=== PATIENT | male | born 1930 | race Caucasian/White ===

== ENCOUNTER 2016-12-22 07:51 | Emergency (ER) | payer MEDICARE ==
--- NOTE | 2016-12-22 08:15 | Emergency Department Record ---
History of Present Illness - General Chief Complaint: Cough Stated Complaint: COUGH Time Seen by Provider: 12/22/16 08:07 Source: Patient, RN notes reviewed Mode of Arrival: Ambulatory - History of Present Illness Initial Comments: cough for 2 days and sore throat and no chilles or fever. No vomiting .no diarrhea. stopped smoking at 32 years and he did have a 30 pack year. 3 pack per day for 10 years. PMH of DM and hypertension Onset/Timin -: Days(s) - Related Data Home Medications Medication Instructions Recorded Confirmed Last Taken Multivitamin [Multi-Vitamin Daily] 1 each PO DAILY 10/28/14 12/22/16 12/22/16 [place]-3 Fatty Acids/Fish Oil [Fish 1 each PO DAILY 10/28/14 12/22/16 12/22/16 Oil 1,000 mg Softgel] Magnesium Oxide [Recinos] 250 mg PO DAILY 03/31/15 12/22/16 12/22/16 Bumetanide [Bumex] 1 mg PO DAILY 12/22/16 12/22/16 12/22/16 Carvedilol [Coreg] 3.125 mg PO BID 12/22/16 12/22/16 12/22/16 Lisinopril 40 mg PO DAILY 12/22/16 12/22/16 12/22/16 Metformin HCl [Glucophage] 500 mg PO DAILY 12/22/16 12/22/16 12/22/16 Previous Rx's Medication Instructions Recorded Allopurinol [Zyloprim] 300 mg PO DAILY #90 tablet 06/23/15 Azithromycin [Zithromax] 250 mg PO DAILY #6 tab 12/22/16 Allergies Allergy/AdvReac Type Severity Reaction Status Date / Time penicillin V potassium Allergy Intermediate RASH Verified 12/22/16 08:03 [From PEN-VEE K] Sulfa (Sulfonamide Allergy Intermediate RASH Verified 12/22/16 08:03 Antibiotics) Travel Screening - Travel/Exposure Within Last 30 Days Have you traveled within the last 30 days?: No Review of Systems Reviewed: No additional complaints except as noted below Constitutional: Reports: As per HPI. Denies: Chills, Fever, Malaise, Night sweats, Weakness, Weight change Eyes: Reports: As per HPI. Denies: Eye discharge, Eye pain, Photophobia, Vision change ENT: Reports: As per HPI, Congestion, Throat pain, Other (hoarse voice). Denies : Dental pain, Ear pain, Epistaxis, Hearing loss Respiratory: Reports: As per HPI, Cough. Denies: Dyspnea, Hemoptysis, Stridor, Wheezes Cardiovascular: Reports: As per HPI. Denies: Arrhythmia, Chest pain, Dyspnea on exertion, Edema, Murmurs, Orthopnea, Palpitations, Paroxysmal nocturnal dyspnea, Rheumatic Fever, Syncope Endocrine: Reports: As per HPI. Denies: Fatigue, Heat or cold intolerance, Polydipsia, Polyuria Gastrointestinal: Reports: As per HPI. Denies: Abdominal pain, Constipation, Diarrhea, Hematemesis, Hematochezia, Melena, Nausea, Vomiting Genitourinary: Reports: As per HPI. Denies: Dysuria, Frequency, Hematuria, Incontinence, Retention, Testicular pain, Testicular mass, Urgency Musculoskeletal: Reports: As per HPI. Denies: Arthralgia, Back pain, Gout, Joint swelling, Myalgia, Neck pain Skin: Reports: As per HPI. Denies: Bruising, Change in color, Change in hair/ nails, Lesions, Pruritus, Rash Neurological: Reports: As per HPI. Denies: Abnormal gait, Confusion, Headache, Numbness, Paresthesias, Seizure, Tingling, Tremors, Vertigo, Weakness Psychiatric: Reports: As per HPI. Denies: Anxiety, Auditory hallucinations, Depression, Homicidal thoughts, Suicidal thoughts, Visual hallucinations Hematological/Lymphatic: Reports: As per HPI. Denies: Anemia, Blood Clots, Easy bleeding, Easy bruising, Swollen glands Past Medical History - SOCIAL HISTORY Smoking Status: Former smoker Alcohol Use: Occassional Drug Use: None - RESPIRATORY Hx Respiratory Disorders: No - CARDIOVASCULAR Hx Cardio Disorders: Yes Hx Hypertension: Yes - NEURO Hx Neuro Disorders: No - GI Hx GI Disorders: No - Hx Genitourinary Disorders: Yes Hx Bladder Problem: Yes Hx Kidney Stones: Yes - ENDOCRINE Hx Endocrine Disorders: Yes Hx Diabetes: Yes - MUSCULOSKELETAL Hx Musculoskeletal Disorders: Yes Hx Arthritis: Yes - PSYCH Hx Psych Problems: No - HEMATOLOGY/ONCOLOGY Hx Hematology/Oncology Disorders: Yes Hx Cancer: Yes (bladder) Family Medical History Any Significant Family History?: No Physical Exam - General General Appearance: Alert, Oriented x3, Cooperative, No acute distress - Head Head exam: Normal inspection - Eye Eye exam: Normal appearance, PERRL Pupils: Normal accommodation - ENT ENT exam: Normal exam, Mucous membranes moist, Normal external ear exam, Normal orophraynx, TM's normal bilaterally Ear exam: Normal external inspection. negative: External canal tenderness Nasal Exam: Normal inspection. negative: Discharge, Sinus tenderness Mouth exam: Normal external inspection, Tongue normal Teeth exam: Normal inspection. negative: Dental caries Throat exam: Normal inspection. negative: Tonsillar erythema, Tonsillar exudate - Neck Neck exam: Normal inspection, Full ROM. negative: Tenderness - Respiratory Respiratory exam: Other (cough with inspiration). negative: Respiratory distress - Cardiovascular Cardiovascular Exam: Regular rate, Normal rhythm, Normal heart sounds - GI/Abdominal GI/Abdominal exam: Soft, Normal bowel sounds. negative: Tenderness - Rectal Rectal exam: Deferred - exam: Deferred - Extremities Extremities exam: Normal inspection, Full ROM, Normal capillary refill. negative: Tenderness - Back Back exam: Reports: Normal inspection, Full ROM. Denies: Muscle spasm, Rash noted, Tenderness - Neurological Neurological exam: Alert, Normal gait, Oriented X3, Reflexes normal - Psychiatric Psychiatric exam: Normal affect, Normal mood - Skin Skin exam: Dry, Intact, Normal color, Warm Medical Decision Making - Data Complexity MDM Data: Labs Ordered and/or Reviewed, X-Ray Ordered and/or Reviewed (no acute changes) Disposition Clinical Impression: Bronchitis Disposition: Home, Self-Care Condition: (1) Good Instructions: Acute Bronchitis (ED) Additional Instructions: follow up with primary in 5-10 days robitussin DM cough syrup two teaspoons every 4 hours Prescriptions: Azithromycin [Zithromax] 250 mg PO DAILY #6 tab Forms: Patient Portal Access Time of Disposition: 09:05
[2016-12-22 08:26] LABS: STREP A SCREEN NEGATIVE (NEGATIVE)
[2016-12-22 08:34] LABS: INFLUENZA A NEGATIVE (NEGATIVE); INFLUENZA B NEGATIVE (NEGATIVE)
[2016-12-22] MEDS ORDERED: AZITHROMYCIN 500 MG TABLET PO ONE (09:03)
== END 2016-12-22 09:24 | disposition home or self-care (01) ==
LOC: ER 07:51
DX: J20.9 Acute bronchitis, unspecified (principal); Z87.891 Personal history of nicotine dependence; I10 Essential (primary) hypertension; E11.9 Type 2 diabetes mellitus without complications; Z79.84 Long term (current) use of oral hypoglycemic drugs
CPT/HCPCS: 71020; 87400; 87880; 99282

== ENCOUNTER 2017-01-04 11:09 | Inpatient (IN) | payer MEDICARE ==
[2017-01-04] MEDS ORDERED: Diph,Pert(Acell),Tet Vac 0.5 ML SYR IM ONE (11:49)
--- NOTE | 2017-01-04 11:54 | Emergency Department Record ---
History of Present Illness - General Chief Complaint: Syncope Stated Complaint: ARRIVED VIA AMBULANCE Time Seen by Provider: 01/04/17 11:41 Source: Patient Mode of Arrival: EMS Limitations: No limitations - History of Present Illness Initial Comments: The patient is here due to possibly passing out while at home. He was outside helping to load wood on a truck when he suddenly became lightheaded and fell backwards into some brush. He did not hit his head and possibly was only out briefly. The next thing he remembers is his family helping him up. The family then called an ambulance and he walked to the ambulance with no problems. He denied any CP, SOB, CHANDLER, or THOMAS prior to falling and has had no problems since. Presently the patient denies any complaints, THOMAS, neck pain, CP, SOB or any recent illnesses. The patient has no cardiac hx and has not started any new medicines. MD Complaint: Collapsed, Narvon faint Onset/Timin -: Hour(s) Prodromal Symptoms: None Injuries Sustained Associated with Event: Other Current Symptoms: None Treatments Prior to Arrival: None - Hominy Coma Scale Eye Response: (4) Open spontaneously Motor Response: (6) Obeys commands Verbal Response: (5) Oriented Hominy Total: 15 - Related Data Home Medications Medication Instructions Recorded Confirmed Last Taken Multivitamin [Multi-Vitamin Daily] 1 each PO DAILY 10/28/14 01/04/17 01/04/17 [place]-3 Fatty Acids/Fish Oil [Fish 1 each PO DAILY 10/28/14 01/04/17 01/04/17 Oil 1,000 mg Softgel] Magnesium Oxide [Recinos] 500 mg PO DAILY 03/31/15 01/04/17 01/04/17 Bumetanide [Bumex] 1 mg PO DAILY 12/22/16 01/04/17 01/04/17 Carvedilol [Coreg] 3.125 mg PO BID 12/22/16 01/04/17 01/04/17 Lisinopril 40 mg PO DAILY 12/22/16 01/04/17 01/04/17 Metformin HCl [Glucophage] 500 mg PO DAILY 12/22/16 01/04/17 01/04/17 Aspirin [Adult Low Dose Aspirin EC] 81 mg PO DAILY 01/04/17 01/04/17 01/04/17 Famotidine [Pepcid] 20 mg PO DAILY 01/04/17 01/04/17 01/04/17 Previous Rx's Medication Instructions Recorded Allopurinol [Zyloprim] 300 mg PO DAILY #90 tablet 06/23/15 Allergies Allergy/AdvReac Type Severity Reaction Status Date / Time penicillin V potassium Allergy Intermediate RASH Verified 01/04/17 11:26 [From PEN-VEE K] Sulfa (Sulfonamide Allergy Intermediate RASH Verified 01/04/17 11:26 Antibiotics) Travel Screening - Travel/Exposure Within Last 30 Days Have you traveled within the last 30 days?: No Review of Systems Constitutional: Denies: Chills, Fever Eyes: Denies: Eye discharge ENT: Denies: Congestion Respiratory: Denies: Cough, Dyspnea Cardiovascular: Denies: Arrhythmia, Chest pain Endocrine: Denies: Fatigue Gastrointestinal: Denies: Abdominal pain Genitourinary: Denies: Dysuria Musculoskeletal: Denies: Arthralgia Skin: Denies: Bruising Past Medical History - SOCIAL HISTORY Smoking Status: Former smoker Alcohol Use: Occassional Drug Use: None - RESPIRATORY Hx Respiratory Disorders: No - CARDIOVASCULAR Hx Cardio Disorders: Yes Hx Hypertension: Yes - NEURO Hx Neuro Disorders: No - GI Hx GI Disorders: No - Hx Genitourinary Disorders: Yes Hx Bladder Problem: Yes Hx Kidney Stones: Yes Hx Renal Disease: Yes (29% kidney function) - ENDOCRINE Hx Endocrine Disorders: Yes Hx Diabetes: Yes - MUSCULOSKELETAL Hx Musculoskeletal Disorders: Yes Hx Arthritis: Yes - PSYCH Hx Psych Problems: No - HEMATOLOGY/ONCOLOGY Hx Hematology/Oncology Disorders: Yes Hx Cancer: Yes (bladder) Comment:: Thalesemia Family Medical History Any Significant Family History?: Yes Hx Diabetes: Mother Physical Exam - General General Appearance: Alert, Oriented x3, Cooperative, No acute distress - Head Head exam: Atraumatic, Normocephalic, Normal inspection Head exam detail: negative: Abrasion, Contusion, Andersen's sign, General tenderness - Eye Eye exam: Normal appearance, PERRL - ENT ENT exam: Normal exam, Mucous membranes moist, Normal external ear exam, Normal orophraynx, TM's normal bilaterally Throat exam: Normal inspection. negative: Tonsillar erythema, Tonsillar exudate - Neck Neck exam: Normal inspection, Full ROM. negative: Lymphadenopathy, Meningismus , Tenderness - Respiratory Respiratory exam: Normal lung sounds bilaterally. negative: Respiratory distress - Cardiovascular Cardiovascular Exam: Regular rate, Normal rhythm, Normal heart sounds - GI/Abdominal GI/Abdominal exam: Soft, Normal bowel sounds. negative: Tenderness - Extremities Extremities exam: negative: Normal inspection (There is a superficial abrasion to the dorsal R hand due to a dog scratching him 2 hours ago.) - Neurological Neurological exam: Alert, Normal gait, Oriented X3. negative: Abnormal gait, Altered, Motor sensory deficit - Psychiatric Psychiatric exam: negative: Agitated, Anxious, Depressed Course Vital Signs 01/04/17 11:12 Temperature 97.4 F L Pulse Rate 55 L Respiratory 20 Rate Blood Pressure 117/98 Pulse Ox 98 - Reevaluation(s) Reevaluation #1: The patient is doing very well at this time. He denies any CP, SOB, CHANDLER or THOMAS. I did explain to him that his lab tests are a little worrisome and that I do recommend hospital admission for monitoring and to recheck his lab tests. The patient does agree. I did then discuss the case with Eboni RODRIGUEZ) and she accepts the admission for Dr. Ray. 01/04/17 13:04 Medical Decision Making - Data Complexity MDM Data: Labs Ordered and/or Reviewed, X-Ray Ordered and/or Reviewed, EKG Ordered and/or Reviewed - Lab Data Result diagrams: 01/04/17 11:30 01/04/17 11:30 - EKG Data -: EKG Interpreted by Me EKG: No Acute Changes, Unchanged From Previous - Radiology Data Radiology results: Report reviewed (CXR: No acute changes.) Disposition Disposition: Admit Clinical Impression: Hyponatremia Syncope Qualifiers: Syncope type: unspecified Qualified Code(s): R55 - Syncope and collapse Disposition: Still a Patient at [facility] Decision to Admit: Admit from ER Decision to Admit Date: 01/04/17 Decision to Admit Time: 13:07 Accepting Physician: Flor Time Discussed w/Accepting Physician: 13:07 Condition: (2) Stable Forms: Patient Portal Access Time of Disposition: 13:07
[2017-01-04 11:56] LABS: HEMATOCRIT 33.3 % (42.0-52.0); HEMOGLOBIN 11.3 gm/dl (14.0-18.0); MEAN CELL VOLUME 64.2 fl (81-97); MEAN CORPUSCULAR HGB CONC 33.9 g/dl (32-36); PLATELET COUNT 161 K/uL (130-400); RED BLOOD COUNT 5.19 M/uL (4.40-5.70); RED CELL DISTRIBUTION WIDTH 17.2 % (11.5-14.5); WHITE BLOOD COUNT W/O DIFF 6.1 K/uL (4.2-12.2)
[2017-01-04 11:59] LABS: MEAN CORPUSCULAR HEMOGLOBIN 21.7 pg (27-33)
[2017-01-04 12:07] LABS: ANION GAP 13.4 (7-16); CARBON DIOXIDE 21.6 mmol/L (22-30); CREATININE 2.3 mg/dL (0.66-1.25)
[2017-01-04 12:12] LABS: INR 0.98; PARTIAL THROMBOPLASTIN TIME 26.6 SECONDS (24.5-39.1); PROTHROMBIN TIME (PATIENT) 11.1 SECONDS (9.5-12.1)
[2017-01-04 12:19] LABS: CKMB 2.5 ug/L (0-6); TROPONIN I 0.037 ng/mL (0.00-0.034)
[2017-01-04 12:21] LABS: ANISOCYTOSIS 1+; HYPOCHROMIA 3+; MICROCYTOSIS 2+; POIKILOCYTOSIS 1+; TARGET CELLS 2+
[2017-01-04 12:22] LABS: TOXIC GRANULATION 1+
[2017-01-04 12:32] LABS: URINE APPEARANCE CLEAR; URINE BILIRUBIN NEGATIVE (NEGATIVE); URINE BLOOD NEGATIVE (NEGATIVE); URINE COLOR YELLOW; URINE GLUCOSE (UA) NEGATIVE (NEGATIVE); URINE KETONE NEGATIVE (NEGATIVE); URINE LEUKOCYTE ESTERASE NEGATIVE (NEGATIVE); URINE NITRITE NEGATIVE (NEGATIVE); URINE PROTEIN NEGATIVE (NEGATIVE); URINE UROBILINOGEN 0.2 E.U./dL (0.20 - 1.00)
[2017-01-04] MEDS ORDERED: 0.9 % SODIUM CHLORIDE 1000ML 1,000 ML IV ONE (12:43)
[2017-01-04] MEDS ORDERED: PNEUM 13-VAL/PF 0.5 ML IM ONE (13:49)
[2017-01-04] MEDS ORDERED: ACETAMINOPHEN 500 MG TABLET PO PRN (13:55)
[2017-01-04] MEDS: 0.9 % SODIUM CHLORIDE 1000ML 1,000 ML IV PRN (14:00)
[2017-01-04] MEDS ORDERED: METFORMIN 500 MG TABLET PO SCH (17:00)
[2017-01-04] MEDS ORDERED: CARVEDILOL 3.125 MG TABLET PO SCH ×2 (17:00→22:00)
[2017-01-05 04:07] LABS: HEMATOCRIT 27.4 % (42.0-52.0); HEMOGLOBIN 9.1 gm/dl (14.0-18.0); MEAN CELL VOLUME 65.2 fl (81-97); MEAN CORPUSCULAR HGB CONC 33.2 g/dl (32-36); PLATELET COUNT 120 K/uL (130-400); RED CELL DISTRIBUTION WIDTH 16.4 % (11.5-14.5)
[2017-01-05 04:09] LABS: MEAN CORPUSCULAR HEMOGLOBIN 21.6 pg (27-33)
[2017-01-05 04:19] LABS: ANION GAP 8.3 (7-16); CARBON DIOXIDE 22.7 mmol/L (22-30)
[2017-01-05 05:28] LABS: HYPOCHROMIA 1+
[2017-01-05] MEDS: 0.9 % SODIUM CHLORIDE 1000ML 1,000 ML IV PRN (09:33)
[2017-01-05] MEDS ORDERED: CARVEDILOL 3.125 MG TABLET PO SCH (10:00)
[2017-01-05] MEDS ORDERED: ALLOPURINOL 100 MG TAB PO SCH (10:00)
[2017-01-05] MEDS ORDERED: FAMOTIDINE 20MG TABLET PO SCH (10:00)
[2017-01-05] MEDS ORDERED: ASPIRIN 81 MG TABEC PO SCH (10:00)
[2017-01-05] MEDS ORDERED: BUMETANIDE 1 MG TABLET PO SCH (10:00)
[2017-01-05] MEDS ORDERED: METFORMIN 500 MG TABLET PO SCH ×2 (10:00→17:00)
--- NOTE | 2017-01-05 10:25 | History & Physical ---
History of Present Illness - Date of Service Date of Service for History & Physical: 01/05/17 - History of Present Illness Admitting Diagnosis: 1. Acute syncopal event with Hyponatremia and Renal Insuffiency. History of Present Illness: 86yo male with CC of syncope. He has a history of chronic renal insufficiency, anemia, hemochromatosis, hypertension, and gout. Patient was brought to ED via EMS after syncopal episode. Patient was out helping load wood into a truck when he got very light-headed and fell backwards in to a hanna. He did not hit his head and but lost consciousness for a few seconds. Family was able to help him back up and then called EMS. He did not have any chest pain, shortness of breath or nausea prior to or after the episode. While in the ED, patient had ekg that showed prolonged KS interval and left bundle branch block. Unfortunately, there were no previous EKG for comparison. 1st set of Troponin was indeterminate at 0.037. Patient was found to be in acute kidney injury with BUN of 57 and Cr of 2.3 (baseline Cr at 1.5). CMP also revealed a sodium of 124, Potassium of 5.4, Cl of 89, Co 21.6. Patient was started on gentle IV rehydration with NS run at 100cc/hr and admitted for FABRIZIO, serial enzymes, and electrolyte correction. 01/04/17- Patient remains asymptomatic. He denies any chest pain, shortness of breath or discomfort. He has never had a syncopal episode before. 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 PCP: visiting physicians Travel Screening - Travel/Exposure Within Last 30 Days Have you traveled within the last 30 days?: No - Travel/Exposure Within Last Year Have you traveled outside the [place] in the last year?: No - Additonal Travel Details Have you been exposed to anyone with a communicable illness?: No - Travel Symptoms Symptom Screening: None Review of Systems Constitutional: Denies: Chills, Fever Eyes: Denies: Eye discharge ENT: Denies: Congestion Respiratory: Denies: Cough, Dyspnea Cardiovascular: Denies: Arrhythmia, Chest pain, Dyspnea on exertion, Edema, Murmurs, Palpitations Endocrine: Denies: Fatigue Gastrointestinal: Denies: Abdominal pain Genitourinary: Denies: Dysuria Musculoskeletal: Denies: Arthralgia Skin: Denies: Bruising Neurological: Reports: Other (syncope) Past Medical History - SOCIAL HISTORY Smoking Status: Former smoker Alcohol Use: Rare Drug Use: None - RESPIRATORY Hx Respiratory Disorders: No - CARDIOVASCULAR Hx Cardio Disorders: Yes Hx Hypertension: Yes - NEURO Hx Neuro Disorders: No Comment:: syncope x2 today - GI Hx GI Disorders: Yes Hx Reflux: Yes - Hx Genitourinary Disorders: Yes Hx Bladder Problem: Yes (bladder cancer) Hx Kidney Stones: Yes Hx Renal Disease: Yes (29% kidney function) - ENDOCRINE Hx Endocrine Disorders: Yes Hx Diabetes: Yes Hx Thyroid Disease: No - MUSCULOSKELETAL Hx Musculoskeletal Disorders: Yes Hx Arthritis: Yes - PSYCH Hx Psych Problems: No - HEMATOLOGY/ONCOLOGY Hx Hematology/Oncology Disorders: Yes Hx Cancer: Yes (bladder) Comment:: Thalesemia Family Medical History Any Significant Family History?: Yes Hx Diabetes: Mother H&P Meds/Allergies - Allergies Allergies: Allergies Allergy/AdvReac Type Severity Reaction Status Date / Time penicillin V potassium Allergy Intermediate RASH Verified 01/04/17 11:26 [From HARSHIL Shea] Sulfa (Sulfonamide Allergy Intermediate RASH Verified 01/04/17 11:26 Antibiotics) - Home Medications Home Medications Medication Instructions Recorded Confirmed Last Taken Multivitamin [Multi-Vitamin Daily] 1 each PO DAILY 10/28/14 01/04/17 01/04/17 [place]-3 Fatty Acids/Fish Oil [Fish 1 each PO DAILY 10/28/14 01/04/17 01/04/17 Oil 1,000 mg Softgel] Magnesium Oxide [Recinos] 500 mg PO DAILY 03/31/15 01/04/17 01/04/17 Bumetanide [Bumex] 1 mg PO DAILY 12/22/16 01/04/17 01/04/17 Carvedilol [Coreg] 3.125 mg PO BID 12/22/16 01/04/17 01/04/17 Lisinopril 40 mg PO DAILY 12/22/16 01/04/17 01/04/17 Metformin HCl [Glucophage] 500 mg PO DAILY 12/22/16 01/04/17 01/04/17 Aspirin [Adult Low Dose Aspirin EC] 81 mg PO DAILY 01/04/17 01/04/17 01/04/17 Famotidine [Pepcid] 20 mg PO DAILY 01/04/17 01/04/17 01/04/17 Previous Rx's Medication Instructions Recorded Allopurinol [Zyloprim] 300 mg PO DAILY #90 tablet 06/23/15 - Active Medications Active Medications: Current Medications Acetaminophen (Tylenol 500mg Tab) 500 mg PO Q6H PRN PRN Reason: PAIN/TEMP Allopurinol (Zyloprim) 300 mg PO DAILY [facility] Aspirin (Ecotrin (Ec)) 81 mg PO DAILY [facility] Bumetanide (Bumex) 1 mg PO DAILY [facility] Carvedilol (Coreg) 3.125 mg PO 1000,1700 [facility] Famotidine (Pepcid) 20 mg PO DAILY [facility] Sodium Chloride () 1,000 mls @ 100 mls/hr IV .Q10H PRN PRN Reason: LARGE VOLUME IV Last Admin: 01/05/17 09:33 Dose: 100 mls/hr Metformin HCl (Glucophage Ir) 500 mg PO 1700 [facility] Physical Exam - Vital Signs Vital Signs: Vital Signs - Last 24 Hrs Temp Pulse Resp BP Pulse Ox 01/05/17 08:17 34 L 20 01/05/17 08:00 97.5 F L 60 20 122/65 98 01/05/17 06:05 97 01/05/17 04:00 97.5 F L 40 L 18 126/55 97 01/04/17 23:13 45 L 18 124/61 97 01/04/17 21:57 50 L 18 123/62 95 01/04/17 19:55 97.9 F 69 20 143/71 95 01/04/17 15:55 97.4 F L 64 18 160/83 98 01/04/17 13:55 98.0 F 64 18 196/79 98 - General General Appearance: Alert, Oriented x3, Cooperative, No acute distress Limitations: No limitations - Head Head exam: Atraumatic, Normocephalic, Normal inspection Head exam detail: negative: Abrasion, Contusion, Andersen's sign, General tenderness - Eye Eye exam: Normal appearance, PERRL - ENT ENT exam: Normal exam, Mucous membranes moist, Normal external ear exam, Normal orophraynx, TM's normal bilaterally Throat exam: Normal inspection. negative: Tonsillar erythema, Tonsillar exudate - Neck Neck exam: Normal inspection, Full ROM. negative: Lymphadenopathy, Meningismus , Tenderness - Respiratory Respiratory exam: Normal lung sounds bilaterally. negative: Respiratory distress - Cardiovascular Cardiovascular Exam: Normal heart sounds, Bradycardia, Irregular rhythm ( regularly irregular) Peripheral Pulses: 2+: Radial (R), Radial (L), Dorsalis Pedis (R), Dorsalis Pedis (L) - GI/Abdominal GI/Abdominal exam: Soft, Normal bowel sounds. negative: Tenderness - Extremities Extremities exam: negative: Normal inspection (There is a superficial abrasion to the dorsal R hand due to a dog scratching him just prior to syncopal episode) - Neurological Neurological exam: Alert, Normal gait, Oriented X3. negative: Abnormal gait, Altered, Motor sensory deficit - Psychiatric Psychiatric exam: negative: Agitated, Anxious, Depressed Results - Labs Result Diagrams: 01/05/17 03:30 01/05/17 03:30 Labs Last 24 Hours: Laboratory Results - last 24 hr 01/04/17 01/04/17 01/04/17 19:05 19:05 19:05 WBC RBC Hgb Hct MCV MCH MCHC RDW Plt Count Neutrophils % Band Neutrophils % Lymphocytes % Monocytes % Eosinophils % Basophils % Hypochromasia Sodium 125 L Potassium 4.7 Chloride 92 L Carbon Dioxide 24.0 Anion Gap 9.0 BUN 55 H Creatinine 2.0 H Estimated GFR 34 Random Glucose 124 H Calcium 8.9 CK-MB (CK-2) 2.0 Troponin I 0.061 H 01/05/17 01/05/17 01/05/17 03:30 03:30 03:30 WBC 5.0 RBC 4.20 L Hgb 9.1 L Hct 27.4 L MCV 65.2 L MCH 21.6 L MCHC 33.2 RDW 16.4 H Plt Count 120 L Neutrophils % 47.0 Band Neutrophils % 0.0 Lymphocytes % 38.0 Monocytes % 13.0 H Eosinophils % 2.0 Basophils % 0.0 Hypochromasia 1+ Sodium 126 L Potassium 4.7 Chloride 95 L Carbon Dioxide 22.7 Anion Gap 8.3 BUN 50 H Creatinine 2.0 H Estimated GFR 34 Random Glucose 88 Calcium 8.5 CK-MB (CK-2) 2.0 Troponin I 01/05/17 03:30 WBC RBC Hgb Hct MCV MCH MCHC RDW Plt Count Neutrophils % Band Neutrophils % Lymphocytes % Monocytes % Eosinophils % Basophils % Hypochromasia Sodium Potassium Chloride Carbon Dioxide Anion Gap BUN Creatinine Estimated GFR Random Glucose Calcium CK-MB (CK-2) Troponin I 0.085 H VTE H&P Assessment - Risk for VTE Risk for VTE: Yes Risk Level: High Risk Assessment Date: 01/05/17 Risk Assessment Time: 11:18 VTE Orders Placed or Will Be Placed: Yes Plan - Inpatient Certification Inpatient Certification: Admit to inpatient care: Based on my medical assessment, after consideration of patient's risk factors (age, co-morbidities and patient presenting symptoms and acuity), I expect that this patient will remain in the hospital greater than or equal to two midnights and that the services needed warrant inpatient care because: Patient Risk Factors: [age, FABRIZIO, syncope, 2nd degree AV block ] Estimated length of stay: [24H] The patient may reasonably be expected to be discharged or transferred to a hospital within 96 hours after admission to [facility]. Services needed: [cardiology, IV fluids, cardiac monitoring] Post hospital care (if known): [] I certify that my determination is in accordance with my understanding of Medicare requirements for reasonable and necessary inpatient services. 01/05/17 10:46 - Detailed Diagnosis and Plan (1) Syncope Current Visit: Yes Status: Acute Qualifiers: Syncope type: unspecified Qualified Code(s): R55 - Syncope and collapse Base Code: R55 - SYNCOPE AND COLLAPSE Comment: 01/05/17- complete LOC for about a minute witnessed by family. No trauma or injury to head. No chest pain, shortness of breath or dizziness prior to episode. No seizure like activity or post-ictal state. No previous episodes -possible etiologies include electrolyte abnormalities due FABRIZIO vs cardiac etiology. -continue electrolyte correction wtih gentle IV hydration -will pursue inpatient transfer to 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 He is asymptomatic. His heart rate has been fluctuating between 30bpm while sleeping to 45-48bpm while awake. Blood pressure stable at 122/65 and O2 sat at 98% on RA. -hold all BB -continue cardiac monitoring -correcting electrolytes -continous pulse ox -spoke with Dr. Mendoza on-call cardiology at [facility] and agrees he will need to be evaluated by cardiology sooner than Friday which is the earliest Dr. Lux will be out to our facility this week. Will contact [facility] medicine service for inpatient transfer (3) FABRIZIO (acute kidney injury) Current Visit: Yes Status: Acute Base Code: N17.9 - ACUTE KIDNEY FAILURE, UNSPECIFIED Comment: 01/04/17- Improved slightly. BUN 50 Cr 2.0 down from 57 and 2.3. eGFR of 34. -continue gentle IV hydration with normal saline at 100cc/hr -hold ACEI, bumex, metformin, allopurinol -avoiding all NSAIDs and other nephrotoxic meds -repeat labs q12h -obtain weight daily (4) Electrolyte abnormality Current Visit: Yes Status: Acute Base Code: E87.8 - OTH DISORDERS OF ELECTROLYTE AND FLUID BALANCE, NEC Comment: 01/05/17- Improving. Na of 124 up to 126, potassium of 5.4 down to 4.7, cl of 89 up to 95 and co of 21.6 up to 22.7. -continue gentle IV hydration at 100cc/hr (5) DVT prophylaxis Current Visit: Yes Status: Acute Base Code: [id number] - Comment: 01/05/17- high risk with age and restricted mobility -renally dosed lovenox for prophylaxis. (6) Full code status Current Visit: Yes Status: Acute Base Code: Z78.9 - OTHER SPECIFIED HEALTH STATUS Comment: 01/05/17- patient is full code
--- NOTE | 2017-01-05 11:31 | Discharge Summary ---
Providers Discharge Summary Date: 01/05/17 Date of admission: 01/04/17 13:32 Expected Date of Discharge: 01/05/17 Attending physician: JOSE L FREGOSO Physical Exam - Vital Signs Vital Signs: Vital Signs - Last 24 Hrs Temp Pulse Resp BP Pulse Ox 01/05/17 08:17 34 L 20 01/05/17 08:00 97.5 F L 60 20 122/65 98 01/05/17 06:05 97 01/05/17 04:00 97.5 F L 40 L 18 126/55 97 01/04/17 23:13 45 L 18 124/61 97 01/04/17 21:57 50 L 18 123/62 95 01/04/17 19:55 97.9 F 69 20 143/71 95 01/04/17 15:55 97.4 F L 64 18 160/83 98 01/04/17 13:55 98.0 F 64 18 196/79 98 - General General Appearance: Alert, Oriented x3, Cooperative, No acute distress Limitations: No limitations - Head Head exam: Atraumatic, Normocephalic, Normal inspection Head exam detail: negative: Abrasion, Contusion, Andersen's sign, General tenderness - Eye Eye exam: Normal appearance, PERRL - ENT ENT exam: Normal exam, Mucous membranes moist, Normal external ear exam, Normal orophraynx, TM's normal bilaterally Throat exam: Normal inspection. negative: Tonsillar erythema, Tonsillar exudate - Neck Neck exam: Normal inspection, Full ROM. negative: Lymphadenopathy, Meningismus , Tenderness - Respiratory Respiratory exam: Normal lung sounds bilaterally. negative: Respiratory distress - Cardiovascular Cardiovascular Exam: Normal heart sounds, Bradycardia, Irregular rhythm ( regularly irregular) Peripheral Pulses: 2+: Radial (R), Radial (L), Dorsalis Pedis (R), Dorsalis Pedis (L) - GI/Abdominal GI/Abdominal exam: Soft, Normal bowel sounds. negative: Tenderness - Extremities Extremities exam: negative: Normal inspection (There is a superficial abrasion to the dorsal R hand due to a dog scratching him just prior to syncopal episode) - Neurological Neurological exam: Alert, Normal gait, Oriented X3. negative: Abnormal gait, Altered, Motor sensory deficit - Psychiatric Psychiatric exam: negative: Agitated, Anxious, Depressed Hospitalization - Hospitalization Admission Diagnosis: 1. Acute syncopal event with Hyponatremia and Renal Insuffiency. 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 He is asymptomatic. His heart rate has been fluctuating between 30bpm while sleeping to 45-48bpm while awake. Blood pressure stable at 122/65 and O2 sat at 98% on RA. -hold all BB -continue cardiac monitoring -correcting electrolytes -continous pulse ox -spoke with Dr. Mendoza on-call cardiology at [facility] and agrees he will need to be evaluated by cardiology sooner than Friday which is the earliest Dr. Lux will be out to our facility this week. -Spoke with Dr. Courtney chronometer repairer for [facility] D-service who accepts admission. Will transfer as patient's needs cannot be met here (2) Syncope Current Visit: Yes Status: Acute Discharge Diagnosis: Syncope type: unspecified Qualified Code(s): R55 - Syncope and collapse Base Code: R55 - SYNCOPE AND COLLAPSE Comment: 01/05/17- complete LOC for about a minute witnessed by family. No trauma or injury to head. No chest pain, shortness of breath or dizziness prior to episode. No seizure like activity or post-ictal state. No previous episodes -possible etiologies include electrolyte abnormalities due FABRIZIO vs cardiac etiology. -continue electrolyte correction wtih gentle IV hydration -will pursue inpatient transfer to [facility] for cardiology evaluation for new onset AV block, and nephrology consult for FABRIZIO (3) FABRIZIO (acute kidney injury) Current Visit: Yes Status: Acute Base Code: N17.9 - ACUTE KIDNEY FAILURE, UNSPECIFIED Comment: 01/05/17- Improved slightly. BUN 50 Cr 2.0 down from 57 and 2.3. eGFR of 34. -continue gentle IV hydration with normal saline at 100cc/hr -hold ACEI, bumex, metformin, allopurinol -avoiding all NSAIDs and other nephrotoxic meds -repeat labs q12h -obtain weight daily (4) Electrolyte abnormality Current Visit: Yes Status: Acute Base Code: E87.8 - OTH DISORDERS OF ELECTROLYTE AND FLUID BALANCE, NEC Comment: 01/05/17- Improving. Na of 124 up to 126, potassium of 5.4 down to 4.7, cl of 89 up to 95 and co of 21.6 up to 22.7. -continue gentle IV hydration at 100cc/hr (5) DVT prophylaxis Current Visit: Yes Status: Acute Base Code: [id number] - Comment: 01/05/17- high risk with age and restricted mobility -renally dosed lovenox for prophylaxis. (6) Full code status Current Visit: Yes Status: Acute Base Code: Z78.9 - OTHER SPECIFIED HEALTH STATUS Comment: 01/05/17- patient is full code - Hospitalization Course Disposition: Acute Care Hospital Transfer Hospital Course: 86yo male with CC of syncope. He has a history of chronic renal insufficiency, anemia, hemochromatosis, hypertension, and gout. Patient was brought to ED via EMS after syncopal episode. Patient was out helping load wood into a truck when he got very light-headed and fell backwards in to a hanna. He did not hit his head and but lost consciousness for a few seconds. Family was able to help him back up and then called EMS. He did not have any chest pain, shortness of breath or nausea prior to or after the episode. While in the ED, patient had ekg that showed prolonged TN interval and left bundle branch block. Unfortunately, there were no previous EKG for comparison. 1st set of Troponin was indeterminate at 0.037. Patient was found to be in acute kidney injury with BUN of 57 and Cr of 2.3 (baseline Cr at 1.5). CMP also revealed a sodium of 124, Potassium of 5.4, Cl of 89, Co 21.6. Patient was started on gentle IV rehydration with NS run at 100cc/hr and admitted for FABRIZIO, serial enzymes, and electrolyte correction. 01/05/17- Patient remains asymptomatic. He denies any chest pain, shortness of breath or discomfort. He has never had a syncopal episode before. He says his PAEDIATRIC PHYSIOTHERAPIST is trying to set him up with a double needle stitcher and hospice rn but has not seen either yet. Abnormal Labs: Abnormal Lab Results 01/04/17 01/04/17 01/05/17 Range/Units 19:05 19:05 03:30 RBC 4.20 L (4.40-5.70) M/uL Hgb 9.1 L (14.0-18.0) gm/dl Hct 27.4 L (42.0-52.0) % MCV 65.2 L (81-97) fl MCH 21.6 L (27-33) pg RDW 16.4 H (11.5-14.5) % Plt Count 120 L (130-400) K/uL Monocytes % 13.0 H (0-9) % Sodium 125 L (136-145) mmol/L Chloride 92 L (98-107) mmol/L BUN 55 H (9-20) mg/dL Creatinine 2.0 H (0.66-1.25) mg/dL Random Glucose 124 H (70-110) mg/dL Troponin I 0.061 H (0.00-0.034) ng/mL 01/05/17 01/05/17 Range/Units 03:30 03:30 RBC (4.40-5.70) M/uL Hgb (14.0-18.0) gm/dl Hct (42.0-52.0) % MCV (81-97) fl MCH (27-33) pg RDW (11.5-14.5) % Plt Count (130-400) K/uL Monocytes % (0-9) % Sodium 126 L (136-145) mmol/L Chloride 95 L (98-107) mmol/L BUN 50 H (9-20) mg/dL Creatinine 2.0 H (0.66-1.25) mg/dL Random Glucose (70-110) mg/dL Troponin I 0.085 H (0.00-0.034) ng/mL Condition at Discharge: (2) Stable Discharge Medications - Discharge Medications Home Medications: Ambulatory Orders Multivitamin [Multi-Vitamin Daily] 1 each PO DAILY 10/28/14 [Last Taken 01/04/17 ] [place]-3 Fatty Acids/Fish Oil [Fish Oil 1,000 mg Softgel] 1 each PO DAILY [Last Taken 01/04/17] Magnesium Oxide [Recinos] 500 mg PO DAILY 03/31/15 [Last Taken 01/04/17] Aspirin [Adult Low Dose Aspirin EC] 81 mg PO DAILY 01/04/17 [Last Taken 01/04/17 ] Famotidine [Pepcid] 20 mg PO DAILY 01/04/17 [Last Taken 01/04/17] Discharge Plan - Discharge Instructions Activity at Discharge: Resume Usual Activities As Tolerated Diet at Discharge: Low Fat, Low Cholesterol
--- NOTE | 2017-01-08 07:37 | RADIOLOGY REPORT ---
EXAM: CHEST, TWO VIEWS HISTORY: ACUTE NONPRODUCTIVE COUGH, HISTORY OF PROSTATE CANCER. TECHNIQUE: Two views of the chest were obtained. Comparison: Chest x-ray 12/22/16. FINDINGS: The lungs are clear. The cardiomediastinal silhouette and diaphragm are unremarkable. Moderate to extensive arthritic change of the glenohumeral joints with superior migration of the humeral heads consistent with chronic rotator cuff disease. Moderate multilevel degenerative disk disease of the thoracic spine. IMPRESSION: NO ACUTE INTRATHORACIC PROCESS WITH NO INTERVAL CHANGE. JOB NUMBER: [id number] MTDD
== END 2017-01-05 14:41 | disposition short-term general hospital (02) | DRG 312 ==
LOC: ER 11:09 → MEDSURG 13:32
PROVIDERS: ADMIT Family Medicine; ATTEND Family Medicine
DX: R55 Syncope and collapse (principal); E87.1 Hypo-osmolality and hyponatremia; N17.9 Acute kidney failure, unspecified; E87.8 Other disorders of electrolyte and fluid balance, not elsewhere classified; Z78.9 Other specified health status; N28.9 Disorder of kidney and ureter, unspecified; I44.1 Atrioventricular block, second degree; E83.119 Hemochromatosis, unspecified; I10 Essential (primary) hypertension; E11.9 Type 2 diabetes mellitus without complications; Z79.84 Long term (current) use of oral hypoglycemic drugs
CPT/HCPCS: 71020; 80048; 81003; 82550; 82553; 84484; 85027; 85610; 85730; 90715; 93005; 93010; 94761; 96360; 96372; 99223; 99284; 99285; J7030

== ENCOUNTER 2017-03-13 14:33 | Emergency (ER) | payer MEDICARE ==
[2017-03-13] MEDS ORDERED: ONDANSETRON HCL IV 4 MG/2 ML VIAL IV ONE (15:03)
[2017-03-13] MEDS ORDERED: SUCRALFATE 1 G/10 ML UD PO ONE (15:04)
--- NOTE | 2017-03-13 15:10 | Emergency Department Record ---
History of Present Illness - General Chief complaint: Nausea, Vomiting, Diarrhea Stated complaint: NOT FEELING WELL/ABD PAIN Time Seen by Provider: 03/13/17 14:59 Source: Patient Mode of Arrival: Ambulatory Limitations: No limitations - History of Present Illness Initial comments: The patient is here due to a one week hx of diffuse mild AP. He describes the pain as a sharp stabbing pain that comes and goes. It is not associated with nausea, vomiting, or eating. He has been having loose stools at times. The patient did see his visiting physician who told him to come to the ER for treatment. The patient denies any CP, SOB, or back pain and states the pain is almost gone now. 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 MD complaint: Abdominal pain, Diarrhea Onset/Timin -: Week(s) Description of Diarrhea: Green Associated Abdominal Pain: Yes Location: Diffuse Severity scale (1-10): 5 Quality: Sharp Consistency: Intermittent Improves with: Bowel movement Worsens with: Eating - Related Data Home Medications Medication Instructions Recorded Confirmed Last Taken Multivitamin [Multi-Vitamin Daily] 1 each PO DAILY 10/28/14 03/13/17 03/13/17 [place]-3 Fatty Acids/Fish Oil [Fish 1 each PO DAILY 10/28/14 03/13/17 03/13/17 Oil 1,000 mg Softgel] Magnesium Oxide [Recinos] 500 mg PO DAILY 03/31/15 03/13/17 03/13/17 Aspirin [Adult Low Dose Aspirin EC] 81 mg PO DAILY 01/04/17 03/13/17 03/13/17 Famotidine [Pepcid] 20 mg PO BID 01/04/17 03/13/17 03/13/17 Allopurinol [Allopurinol] 300 mg PO ASDIR 03/13/17 03/13/17 03/13/17 Bumetanide [Bumex] 1 mg PO DAILY 03/13/17 03/13/17 03/13/17 Lisinopril [Lisinopril] 40 mg PO DAILY 03/13/17 03/13/17 03/13/17 Metformin HCl [Metformin HCl] 500 mg PO DAILY 03/13/17 03/13/17 03/12/17 Allergies Allergy/AdvReac Type Severity Reaction Status Date / Time penicillin V potassium Allergy Intermediate RASH Verified 03/13/17 14:45 [From [facility] ] Sulfa (Sulfonamide Allergy Intermediate RASH Verified 03/13/17 14:45 Antibiotics) Travel Screening - Travel/Exposure Within Last 30 Days Have you traveled within the last 30 days?: No - Travel/Exposure Within Last Year Have you traveled outside the [place] in the last year?: No - Additonal Travel Details Have you been exposed to anyone with a communicable illness?: No - Travel Symptoms Symptom Screening: None Review of Systems Constitutional: Denies: Chills, Fever Eyes: Denies: Eye discharge ENT: Denies: Congestion Respiratory: Denies: Cough, Dyspnea Past Medical History - SOCIAL HISTORY Smoking Status: Former smoker - RESPIRATORY Hx Respiratory Disorders: No - CARDIOVASCULAR Hx Cardio Disorders: Yes Hx Hypertension: Yes - NEURO Hx Neuro Disorders: No Comment:: syncope x2 today - GI Hx GI Disorders: Yes Hx Reflux: Yes - Hx Genitourinary Disorders: Yes Hx Bladder Problem: Yes (bladder cancer) Hx Kidney Stones: Yes Hx Renal Disease: Yes (29% kidney function) - ENDOCRINE Hx Endocrine Disorders: Yes Hx Diabetes: Yes Hx Thyroid Disease: No - MUSCULOSKELETAL Hx Musculoskeletal Disorders: Yes Hx Arthritis: Yes - PSYCH Hx Psych Problems: No - HEMATOLOGY/ONCOLOGY Hx Hematology/Oncology Disorders: Yes Hx Cancer: Yes (bladder) Comment:: Thalesemia Family Medical History Any Significant Family History?: Yes Hx Diabetes: Mother Physical Exam - General General Appearance: Alert, Oriented x3, Cooperative, No acute distress - Head Head exam: Atraumatic, Normocephalic, Normal inspection - Eye Eye exam: Normal appearance, PERRL - Neck Neck exam: Normal inspection, Full ROM. negative: Tenderness - Respiratory Respiratory exam: Normal lung sounds bilaterally. negative: Rales, Respiratory distress, Rhonchi, Wheezes - Cardiovascular Cardiovascular Exam: Regular rate, Normal rhythm, Normal heart sounds - GI/Abdominal GI/Abdominal exam: Soft, Normal bowel sounds. negative: Distended, Rebound, Rigid, Tenderness (The abdomen is very soft and nontender at this time.) - Extremities Extremities exam: Normal inspection, Full ROM, Normal capillary refill. negative: Tenderness - Neurological Neurological exam: Alert. negative: Motor sensory deficit Course Vital Signs 03/13/17 14:50 Temperature 98 F Pulse Rate 97 H Respiratory 20 Rate Blood Pressure 143/67 Pulse Ox 98 - Reevaluation(s) Reevaluation #1: The patient is doing well. I did explain to him the problem appears to be related to his kidney failure. I explained to him the need for hospital admission and he states he would like to go to [facility] in [place]. 03/13/17 15:51 Reevaluation #2: I did discuss the case with Dr. Combs at [facility] and he does accept the patient in an ER to ER transfer. 03/13/17 16:21 Medical Decision Making - Data Complexity MDM Data: Labs Ordered and/or Reviewed, EKG Ordered and/or Reviewed - Lab Data Result diagrams: 03/13/17 15:10 03/13/17 15:10 - EKG Data -: EKG Interpreted by Me (Vent yemi.) Disposition Disposition: Transfer Clinical Impression: FABRIZIO (acute kidney injury) Renal failure (ARF), acute on chronic Qualifiers: Acute renal failure type: unspecified Chronic kidney disease stage: unspecified stage Qualified Code(s): N17.9 - Acute kidney failure, unspecified; N18.9 - Chronic kidney disease, unspecified Disposition: Acute Care Hospital Transfer Transfer To: [facility] Reason For Transfer: Renal Failure Accepting Physician: Garret Time Discussed w/Accepting Physician: 16:22 Condition: (2) Stable Forms: Patient Portal Access Time of Disposition: 16:22
[2017-03-13 15:17] LABS: BASO % 0.3 % (0-6); GRAN % 56.2 % (47-80); HEMATOCRIT 27.9 % (42.0-52.0); HEMOGLOBIN 9.1 gm/dl (14.0-18.0); LYMPH % 30.9 % (16-45); MEAN CELL VOLUME 64.4 fl (81-97); MEAN CORPUSCULAR HGB CONC 32.6 g/dl (32-36); MONO % 10.6 % (0-9); PLATELET COUNT 110 K/uL (130-400); RED BLOOD COUNT 4.33 M/uL (4.40-5.70); RED CELL DISTRIBUTION WIDTH 16.8 % (11.5-14.5)
[2017-03-13 15:30] LABS: ALBUMIN 3.9 gm/dL (3.5-5.0); ANION GAP 12.8 (7-16); BILIRUBIN,TOTAL 1.24 mg/dL (0.2-1.3); CARBON DIOXIDE 20.2 mmol/L (22-30); CREATININE 6.5 mg/dL (0.66-1.25); TOTAL PROTEIN 6.6 gm/dL (6.3-8.2)
[2017-03-13] MEDS ORDERED: 0.9 % SODIUM CHLORIDE 1,000 ML BAG IV ONE (15:45)
[2017-03-13 18:00] LABS: URINE APPEARANCE CLEAR; URINE BILIRUBIN NEGATIVE (NEGATIVE); URINE BLOOD NEGATIVE (NEGATIVE); URINE COLOR YELLOW; URINE GLUCOSE (UA) NEGATIVE (NEGATIVE); URINE KETONE NEGATIVE (NEGATIVE); URINE LEUKOCYTE ESTERASE NEGATIVE (NEGATIVE); URINE NITRITE NEGATIVE (NEGATIVE); URINE PROTEIN NEGATIVE (NEGATIVE); URINE UROBILINOGEN 0.2 E.U./dL (0.20 - 1.00)
== END 2017-03-13 16:47 | disposition short-term general hospital (02) ==
LOC: ER 14:33
DX: I12.9 Hypertensive chronic kidney disease with stage 1 through stage 4 chronic kidney disease, or unspecified chronic kidney disease (principal); E11.22 Type 2 diabetes mellitus with diabetic chronic kidney disease; N18.9 Chronic kidney disease, unspecified; N17.9 Acute kidney failure, unspecified; R11.2 Nausea with vomiting, unspecified; R19.7 Diarrhea, unspecified; Z87.891 Personal history of nicotine dependence; Z79.84 Long term (current) use of oral hypoglycemic drugs
CPT/HCPCS: 99285 ×2; 96374; 96361; 83690; 85025; 80076; 80048; 81003; 93005; 93010; J2405; J7030